=== PATIENT | female | born 1985 | race Caucasian/White ===

== ENCOUNTER 2016-06-29 13:15 | Day surgery (SDC) | payer SELFPAY ==
[~2016-06-29] VITALS: Ht 154.9 cm; Wt 56.8 kg
[2016-06-29 07:57] LABS: APPEARANCE HAZY (CLEAR); BILIRUBIN NEGATIVE (NEGATIVE); COLOR STRAW (YELLOW); GLUCOSE NEGATIVE (NEGATIVE); KETONE NEGATIVE (NEGATIVE); LEUKOCYTE ESTERASE 1+ (NEGATIVE); NITRITE NEGATIVE (NEGATIVE); PROTEIN TRACE mg/dL (NEGATIVE); UROBILINOGEN NORMAL (NORMAL)
[2016-06-29 07:59] LABS: BACTERIA FEW /hpf (NONE SEEN); EPITHELIAL CELLS 0-5 /hpf (0-5)
[2016-06-29 08:29] LABS: BASOPHILS 0.5 % (0.0-2.0); EOSINOPHILS 1.1 % (0-7); HEMATOCRIT 43.6 % (36.0-48.0); HEMOGLOBIN 15.1 g/dL (12-16); IMMATURE GRANULOCYTES 0.4 % (0-5); LYMPHOCYTES 33.2 % (15-50); MCH 34.5 pg (26.0-34.0); MCHC 34.6 g/dL (31.0-37.0); MCV 99.5 fL (80.0-100.0); MEAN PLATELET VOLUME 9.4 fL (7.4-10.4); NEUTROPHILS 53.8 % (40-80); PLATELET COUNT 251 10x3/uL (130-400); RBC 4.38 10x6/uL (4.00-5.40); RDW 13.2 % (11.5-14.5)
[2016-06-29 08:48] LABS: ANION GAP 8.6 mmol/L (8-16); CARBON DIOXIDE 31.5 mmol/L (21.0-32.0); POTASSIUM - SERUM 4.1 mmol/L (3.5-5.1)
[2016-06-29 09:04] LABS: HCG SERUM NEGATIVE (NEGATIVE)
--- NOTE | 2016-06-29 12:27 | NUR ---
DR COLIN STATED HE HAS CALLED PTS BOYFRIEND TO GIVE HIM REPORT SINCE NO OTHER FAMILY HERE AT THIS TIME.
[2016-06-29 13:02] VITALS: BP 134/78
[~2016-06-29 13:15] MED LIST: ADDERALL 5 MG TA5 M1
--- NOTE | 2016-06-29 13:15 | NUR ---
TO ROOM 2218 FROM PACU VIA BED.CALZADA IN PLACE WITH CLEAR URINE IN BAG.ORIENTATION TO ROOM.PT AWAKE AND ALERT.VERY TEARFUL.MONITOR FOR NEEDS.CALL LIGHT IN REACH
[2016-06-29 13:43] VITALS: BP 134/78; Ht 154.9 cm; Wt 56.8 kg
--- NOTE | 2016-06-29 15:27 | NUR ---
AWAKE.HAS TOLERATED REGULAR FOOD TRAY.READY FOR DC HOME.BOYFRIEND HERE FOR TRANSPORT HOME.
--- NOTE | 2016-06-29 16:22 | NUR ---
DISCHARGE INSTRUCTIONS,STATES UNDERSTANDING.FAMILY AT BEDSIDE.TEACHING ON CALZADA CARE AND LEG BAG EXCHANGE. NEW BAG FOR HOME USE.
--- NOTE | 2016-06-29 16:28 | NUR ---
LEFT FLOOR VIA WHEELCHAIR WITH FAMILY AT SIDE.
--- NOTE | 2016-08-08 12:03 | OP ---
PATIENT NAME: HOLLAND MCLEAN MEDICAL RECORD: [id number] :87 LOCATION:D.OPS ADMISSION DATE: SURGEON: HARDY COLIN MD DATE OF OPERATION: 06/29/2016 SURGEON: Hardy Colin M.D. BLOW DOWN OPERATOR: None. GENERAL ANESTHESIA: By Dr. Brenner and ____ CLINTON Robles. FINDINGS: A 1 cm urethral diverticulum at the 6 o'clock position at the urethral meatus. PROCEDURE: Cystoscopy, excision of urethral diverticulum. SPECIMEN: Urethral diverticulum. PREOPERATIVE DIAGNOSES: Periurethral abscess or a urethral diverticulum. ESTIMATED BLOOD LOSS: None. CLINICAL HISTORY: This is a 30-year-old female, , A0. 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 About 2 days ago, she noticed dysuria with urinary frequency and vaginal pain. When she examined herself, she noticed a bulge coming out from the vagina. She came to the Emergency Room. She was seen by gynecology. They were concerned about the involvement of the urethra and therefore I asked for urology to see her. I saw her in the Emergency Room this morning. She has ____ significant amount of pain. She could not be very easily examined because of that. There seemed to be a bulge at about the 12 o'clock position just at the urethral meatus. On the assumption that this may be a periurethral gland abscess, she was arranged to have an incision and drainage of periurethral abscess. She was given Ancef 1 gram IV telecommunication operator to the OR. She is not allergic to any medication. Her home medication is Adderall for ADHD. PROCEDURE IN DETAIL: The patient was placed in dorsal lithotomy position after induction of general anesthesia. She was prepped and draped. A weighted speculum was placed to hold the posterior vaginal wall down. The labia majora were retracted using #2 nylon sutures, which went through the labia majora and then anchored to the medial thigh. The Stay sutures were placed one on each side. We could then examined the bulge, more clearly without the patient movement. DESCRIPTION OF PROCEDURE. Trying to find the urethral meatus. It was very difficult to find the urethral meatus. Finally, I used a female sound and I was able to identify the urethral meatus. Ventral to the bulge, the bulge is actually at the 6 o'clock position, attached to the distal urethral area. By gentle palpation, I was actually able to decompress the bulge that seemed to contain just clear liquid. This makes it more consistent with a urethral diverticulum versus periurethral abscess. The sound was removed and we placed a flexible cystoscope. She has single ureteral orifices. No bladder tumors were seen. There is some urethral bleeding, most likely from our palpation, manipulation and insertion of the sound. Most of the length of the urethra was normal. There was a possible depression at the very distal tip of the urethra OPERATIVE REPORT [id number] HOLLAND MCLEAN near the meatus, which might have been the opening of the diverticulum. The urethral diverticulum being located right at the urethral meatus, would not present any issue with continence. The scope was then removed and a 14-Filipino Irwin catheter was inserted and the balloon inflated with 10 cc of sterile water. This was put to bag drainage. We then put an Allis clamp on the urethral diverticulum. I was able to circumscribe it at its base using a #15 scalpel. Finally, we could excise the entire thing. Before dividing the urethral mucosa, I looked very carefully for the opening, but I could not find it. The urethral mucosa distally was transected. The specimen was then removed and sent to pathology in ____. The urethral mucosa and the vaginal mucosa came into approximation with each other. Naturally, without any tension. I therefore used 4-0 Monocryl simple interrupted sutures to reapproximate the mucosa. About 40 sutures were placed. At this point, the procedure was finished. The labial retraction sutures were removed. She will have the Irwin catheter in to go home to allow the urethra to heal. I will see her back in followup this coming Thursday, which is about 5 days from now and will remove the Irwin catheter at that time. TRANSINT:[id number] Voice Confirmation ID: [id number] DOCUMENT ID: [id number] HARDY COLIN MD at 1203 CC: [id number] DICTATION DATE: 06/29/16 1208 DAY LIGHT RELIEF OPERATOR: 06/29/16 1334 [facility] 06/29/16 [facility] [address] [id number]
== END 2016-06-29 16:30 | disposition home or self-care (01) ==
LOC: D.OPS 13:15 → D.MS 13:15 → D.OPS 16:30 → EDSTATUS 21:59
PROVIDERS: Emergency Medicine
DX: N36.1 Urethral diverticulum (principal); F90.9 Attention-deficit hyperactivity disorder, unspecified type; Z79.899 Other long term (current) drug therapy